=== PATIENT | male | born 1940 | race Caucasian/White ===

== ENCOUNTER 2024-04-30 18:48 | Inpatient (IN) | payer BC, MEDICARE ==
[2024-04-30] MEDS ORDERED: Calcium Carbonate 500 MG ChewTAB PO PRN (21:05)
[2024-04-30] MEDS ORDERED: Ondansetron PF 4 MG/2 ML Vial IVP PRN (21:05)
[2024-04-30] MEDS ORDERED: Acetaminophen 650 MG Suppository PR PRN (21:05)
[2024-04-30] MEDS ORDERED: Ondansetron ODT 4 MG TAB PO PRN (21:05)
[2024-04-30] MEDS ORDERED: Acetaminophen 325 MG TAB PO PRN (21:05)
[2024-04-30 22:15] LABS: Hematocrit 32.9 % (42.0-52.0); Hemoglobin 10.4 g/dL (14.0-18.0); Mean Corpuscular HGB CONC 31.6 g/dL (32.0-36.0); Mean Corpuscular Hemoglobin 24.4 pg (27.0-31.0); Mean Platelet Volume 9.1 fL (7.4-10.4); Platelet Count 263 10x3/uL (130-400); RBC Distribution Width 18.3 % (11.5-14.5); Red Blood Cell (RBC) Count 4.27 mill/uL (4.70-6.10)
[2024-04-30 22:30] LABS: Lactic Acid 3.25 mmol/L (0.50-2.20)
[2024-04-30 22:31] LABS: Anion Gap 17 mmol/L (10-20); BUN (Urea Nitrogen) 42 mg/dL (8.4-25.7); Calc. Creatinine Clearance 0 mL/min (70-130); Calcium 8.7 mg/dL (7.8-10.44); Carbon Dioxide 21 mmol/L (23-31); Chloride 106 mmol/L (98-107); Estimated GFR 19; Glucose 137 mg/dL (83-110); Potassium 4.8 mmol/L (3.5-5.1); Sodium 139 mmol/L (136-145)
[2024-04-30 22:35] LABS: Anisocytosis SLIGHT = 6-15 cells HPF (0-5); Band 6 % (5-11); Hypochromia SLIGHT = 6-15 cells HPF (0-5); Lymphocytes 4 % (21-51); Microcytosis SLIGHT = 6-15 cells HPF (0-5); Monocytes 8 % (0-10); Myelocyte 2 % (0-0); Neutrophil 80 % (42-75); Platelet Adequacy Comment Platelets Normal; Polychromasia SLIGHT = 2-3 cells HPF (0-2); Tear Drops SLIGHT = 2-5 cells HPF (0-1)
[2024-05-01] MEDS: Lactated Ringer's 500 ML IV SCH (00:56)
[2024-05-01] MEDS: Sodium Chloride 0.9% 1,000 ML IV SCH (01:30)
[2024-05-01 02:00] VITALS: BMI 24.0
[2024-05-01 06:15] LABS: #Basophils 0.05 10x3/uL (0.0-0.2); %Basophils 0.5 % (0.0-1.0); %Eosinophils 1.2 % (0.0-10.0); %Lymphocytes 5.8 % (21.0-51.0); %Monocytes 13.8 % (0.0-10.0); %Neutrophils 73.8 % (42.0-75.0); Hematocrit 30.5 % (42.0-52.0); Hemoglobin 9.6 g/dL (14.0-18.0); Mean Corpuscular HGB CONC 31.5 g/dL (32.0-36.0); Mean Corpuscular Hemoglobin 23.9 pg (27.0-31.0); Mean Corpuscular Volume 75.9 fL (78.0-98.0); Mean Platelet Volume 9.3 fL (7.4-10.4); Platelet Count 245 10x3/uL (130-400); RBC Distribution Width 18.1 % (11.5-14.5); Red Blood Cell (RBC) Count 4.02 mill/uL (4.70-6.10)
[2024-05-01 06:31] LABS: BUN (Urea Nitrogen) 41 mg/dL (8.4-25.7); Calc. Creatinine Clearance 20 mL/min (70-130); Carbon Dioxide 22 mmol/L (23-31); Estimated GFR 21; Glucose 134 mg/dL (83-110)
[2024-05-01 06:32] LABS: ALT (SGPT) 14 U/L (Less than 45); AST (SGOT) 22 U/L (11-34); Albumin 2.8 g/dL (3.1-4.5); Alkaline Phosphatase 108 U/L (40-110); Bilirubin, Total 0.3 mg/dL (0.3-1.2); Calcium 8.6 mg/dL (7.8-10.44); Globulin 3.6 g/dL (2.4-3.5); Protein, Total 6.4 g/dL (5.8-8.1)
[2024-05-01 07:03] LABS: Anion Gap 16 mmol/L (10-20); Chloride 106 mmol/L (98-107); Potassium 4.3 mmol/L (3.5-5.1); Sodium 140 mmol/L (136-145)
[2024-05-01] MEDS: cefTRIAXone\\ROCEPHIN 1 GM in Sodium Chloride 0.9% 100 ML IVPB SCH (10:21)
[2024-05-01] MEDS: Doxycycline 100 MG CAP PO SCH (10:21)
[2024-05-01] MEDS: Oseltamivir 6 MG/ML ORAL SUSP PO SCH (10:21)
[2024-05-01] MEDS: Famotidine 20 MG TAB PO SCH (10:21)
[2024-05-01] MEDS: Famotidine/PF 20 mg/2ml Vial SLOW IVP SCH (10:23)
[2024-05-01] MEDS: Albuterol 2.5 MG (3 mL) NEB NEB PRN (13:03)
[2024-05-01] MEDS: Benzonatate 100 MG CAP PO SCH (15:05)
[2024-05-01] MEDS ORDERED: Dextrose 5% in Water 1,000 ML IV PRN (18:02)
[2024-05-01] MEDS ORDERED: Insulin Lispro 100 UNIT/ML 10 ML VIAL SC PRN (18:02)
[2024-05-01] MEDS ORDERED: Glucagon 1 MG/ML KIT IM PRN (18:02)
[2024-05-01] MEDS ORDERED: Dextrose 50% Abboject 50 ML SYRINGE SLOW IVP PRN (18:02)
[2024-05-01] MEDS ORDERED: Gabapentin 300 MG CAP PO PRN (18:06)
[2024-05-01] MEDS ORDERED: Pantoprazole 40 MG DR.TAB PO PRN (18:06)
[2024-05-01] MEDS: Amlodipine 10 MG TAB PO SCH (21:06)
[2024-05-01] MEDS: Heparin 5,000 UNITS/ML VIAL SC SCH (21:07)
[2024-05-01] MEDS: guaiFENesin ER 600 MG TAB PO SCH (21:07)
[2024-05-01] MEDS: Benzonatate 100 MG CAP PO PRN (21:07)
[2024-05-02 05:53] LABS: #Basophils 0.04 10x3/uL (0.0-0.2); %Basophils 0.6 % (0.0-1.0); %Eosinophils 1.2 % (0.0-10.0); %Lymphocytes 8.7 % (21.0-51.0); %Monocytes 14.7 % (0.0-10.0); %Neutrophils 71.5 % (42.0-75.0); Hematocrit 31.2 % (42.0-52.0); Hemoglobin 9.5 g/dL (14.0-18.0); Mean Corpuscular HGB CONC 30.4 g/dL (32.0-36.0); Mean Corpuscular Hemoglobin 23.9 pg (27.0-31.0); Mean Corpuscular Volume 78.6 fL (78.0-98.0); Mean Platelet Volume 9.5 fL (7.4-10.4); Platelet Count 215 10x3/uL (130-400); RBC Distribution Width 18.4 % (11.5-14.5); Red Blood Cell (RBC) Count 3.97 mill/uL (4.70-6.10)
[2024-05-02 05:55] LABS: Hemoglobin A1c 6.3 % (4.0-6.0)
[2024-05-02 06:17] LABS: Anion Gap 15 mmol/L (10-20); BUN (Urea Nitrogen) 33 mg/dL (8.4-25.7); Calc. Creatinine Clearance 20 mL/min (70-130); Calcium 8.3 mg/dL (7.8-10.44); Carbon Dioxide 20 mmol/L (23-31); Chloride 105 mmol/L (98-107); Estimated GFR 21; Glucose 124 mg/dL (83-110); Magnesium 1.7 mg/dL (1.6-2.6); Potassium 4.3 mmol/L (3.5-5.1); Sodium 136 mmol/L (136-145)
[2024-05-02] MEDS ORDERED: Heparin 5,000 UNITS/ML VIAL SC SCH (09:00)
[2024-05-02] MEDS ORDERED: Famotidine 20 MG TAB PO SCH (09:00)
[2024-05-02] MEDS: Isosorbide Mononitrate 30 MG ER.TAB PO SCH (09:54)
[2024-05-02] MEDS: Sertraline 100 MG TAB PO SCH (09:55)
[2024-05-02] MEDS: Famotidine/PF 20 mg/2ml Vial SLOW IVP SCH (09:55)
[2024-05-02] MEDS: Famotidine 20 MG TAB PO SCH (09:55)
[2024-05-03 08:05] LABS: Anion Gap 13 mmol/L (10-20); BUN (Urea Nitrogen) 38 mg/dL (8.4-25.7); Calc. Creatinine Clearance 21 mL/min (70-130); Calcium 8.5 mg/dL (7.8-10.44); Carbon Dioxide 22 mmol/L (23-31); Chloride 104 mmol/L (98-107); Estimated GFR 22; Glucose 117 mg/dL (83-110); Potassium 4.1 mmol/L (3.5-5.1); Sodium 135 mmol/L (136-145)
[2024-05-03 23:37] VITALS: TEMP 98
[2024-05-04 08:46] VITALS: BP 157/67
[2024-05-04 11:37] LABS: Anion Gap 12 mmol/L (10-20); BUN (Urea Nitrogen) 37 mg/dL (8.4-25.7); Calc. Creatinine Clearance 20 mL/min (70-130); Calcium 8.5 mg/dL (7.8-10.44); Carbon Dioxide 22 mmol/L (23-31); Chloride 104 mmol/L (98-107); Estimated GFR 21; Glucose 159 mg/dL (83-110); Sodium 134 mmol/L (136-145)
== END 2024-05-04 16:01 | disposition home or self-care (01) | DRG 871 ==
LOC: T4-B 20:20 → OBSVTOIN 05-01 14:52
PROVIDERS: ADMIT Student in an Organized Health Care Education/Training Program; ATTEND Internal Medicine
DX: A41.89 Other specified sepsis (principal); J10.00 Influenza due to other identified influenza virus with unspecified type of pneumonia; N17.9 Acute kidney failure, unspecified; N18.4 Chronic kidney disease, stage 4 (severe); I12.9 Hypertensive chronic kidney disease with stage 1 through stage 4 chronic kidney disease, or unspecified chronic kidney disease; I25.10 Atherosclerotic heart disease of native coronary artery without angina pectoris; E11.22 Type 2 diabetes mellitus with diabetic chronic kidney disease; E78.5 Hyperlipidemia, unspecified
CPT/HCPCS: 36415; 36416; 71045; 80048; 80053; 83036; 83605; 83735; 83880; 85025; 94640; 96374; 97139; G0378; J0696; J7030; J7120; J7611